=== PATIENT | female | born 1955 | race African-American/Black ===

== ENCOUNTER → 2021-10-10 | Day surgery (SDC) | payer OTHER ==
[~2021-10-10] VITALS: Ht 163.8 cm; Wt 84.0 kg
[~2021-10-10] MED LIST: ADULT ASPIRIN R81 MG PO; BUPROPION XL300 MG PO; COZAAR50 MG PO; HCTZ12.5 MG PO; NAPROXEN500 MG PO; NORCO 5-325 TA1 EACH PO; NORVASC5 MG PO; OS-CAL500 MG PO; PERCOCET 5-3251 EACH PO; TRAZODONE 100M100 MG PO
[2021-10-10 13:22] LABS: HCT 44.8 % (37.0-47.0); HGB 14.1 g/dl (12.5-16.0); MCH 26.9 pg (25.0-31.0); MCHC 31.5 g/dL (32.0-36.0); MCV 85.3 fL (78.0-100.0); MPV 10.6 fL (6.0-9.5); RBC 5.25 M/uL (4.20-5.40); RDW 14.9 % (11.5-14.0); WBC 5.5 K/uL (4.0-10.5)
[2021-10-10 13:47] LABS: ALBUMIN 3.8 g/dL (3.4-5.0); BILIRUBIN - TOTAL 0.3 mg/dL (0.2-1.0); BUN/CREAT RATIO (CALC) 17.9 RATIO; CREATININE 1.06 mg/dL (0.51-0.95); GLOBULIN (CALCULATION) 3.8 g/dL; POTASSIUM 4.1 mmol/L (3.5-5.1); TOTAL PROTEIN 7.6 g/dL (6.4-8.2)
== END | disposition home or self-care (01) ==
LOC: FAS 11:54
PROVIDERS: Orthopaedic Surgery
DX: M75.121 Complete rotator cuff tear or rupture of right shoulder, not specified as traumatic (principal); M75.51 Bursitis of right shoulder; M77.9 Enthesopathy, unspecified; Z88.8 Allergy status to other drugs, medicaments and biological substances; Z79.82 Long term (current) use of aspirin; Z79.899 Other long term (current) drug therapy
CPT/HCPCS: 36415; 71045; 80053; 93005; C1713; J0171; J0690; J1170; J1885; J2250; J2405; J2704; J2710; J2795; J3010

== ENCOUNTER 2021-10-11 23:35 | Emergency (ER) | payer OTHER ==
[2021-10-12] MEDS ORDERED: PERCOCET 5-3251 EACH PO (00:43)
== END 2021-10-12 01:42 | disposition home or self-care (01) ==
LOC: FER 23:35
DX: M25.511 Pain in right shoulder (principal); I10 Essential (primary) hypertension; Z88.8 Allergy status to other drugs, medicaments and biological substances
CPT/HCPCS: 96372; J1170